=== PATIENT | female | born 1965 | race African-American/Black ===

== ENCOUNTER 2016-07-27 18:42 | Emergency (ER) | payer BC ==
[2016-07-27 20:18] LABS: ALBUMIN 3.8 g/dL (3.4-5.0); ALKALINE PHOSPHATASE 157 U/L (46-116); ALT (SGPT) 41 U/L (10-68); CALC OSMOLALITY 282 mosm/kg (275-300); CALCIUM 9.4 mg/dL (8.5-10.1); CARBON DIOXIDE 30.3 mmol/L (21.0-32.0); CHLORIDE - SERUM 103 mmol/L (98-107); CREATININE - SERUM 0.8 mg/dL (0.6-1.3); GLUCOSE 113 mg/dL (74-106); POTASSIUM - SERUM 3.1 mmol/L (3.5-5.1); PROTEIN - SERUM 8.1 g/dL (6.4-8.2); SODIUM 142 mmol/L (136-145); UREA NITROGEN 9 mg/dL (7-18); eGFR NON AFRICAN AMERICAN 81 mL/min (90-120)
[2016-07-27 20:19] LABS: BASOPHILS 0.3 % (0.0-2.0); EOSINOPHILS 2.1 % (0-7); HEMATOCRIT 37.9 % (36.0-48.0); HEMOGLOBIN 12.7 g/dL (12-16); IMMATURE GRANULOCYTES 0.2 % (0-5); LYMPHOCYTES 33.7 % (15-50); MCHC 33.5 g/dL (31.0-37.0); MCV 83.7 fL (80.0-100.0); MEAN PLATELET VOLUME 10.4 fL (7.4-10.4); MONOCYTES 5.5 % (2-11); NEUTROPHILS 58.2 % (40-80); PLATELET COUNT 240 10x3/uL (130-400); RBC 4.53 10x6/uL (4.00-5.40); RDW 14.4 % (11.5-14.5); WBC 6.2 10x3/uL (4.8-10.8)
[2016-07-27 20:31] LABS: CKMB 1.4 U/L (0.0-3.6); CREATINE KINASE 312 UL (21-215)
[2016-07-27 20:32] LABS: TROPONIN-I < 0.017 ng/mL (0.000-0.060)
== END 2016-07-27 22:25 | disposition home or self-care (01) ==
LOC: D.ER 18:42
PROVIDERS: Emergency Medicine
DX: I10 Essential (primary) hypertension (principal)

== ENCOUNTER 2017-03-06 | Emergency (ER) | payer BC | END 2017-03-06 01:50 | disposition home or self-care (01) | LOC: D.ER | DX: J01.90 Acute sinusitis, unspecified (principal); I10 Essential (primary) hypertension ==

== ENCOUNTER 2017-03-06 20:32 | Emergency (ER) | payer BC | END 2017-03-06 22:44 | disposition home or self-care (01) | LOC: D.ER 20:32 | DX: I10 Essential (primary) hypertension (principal); F41.9 Anxiety disorder, unspecified ==

== ENCOUNTER → 2017-04-12 16:10 | Outpatient (CLI) | payer BC | END | disposition home or self-care (01) | LOC: D.CT 04-11 15:30 | DX: I88.9 Nonspecific lymphadenitis, unspecified (principal) ==

== ENCOUNTER → 2017-10-02 17:33 | Outpatient (CLI) | payer BC ==
[~2017-10-02 17:33] MED LIST: FUROSEMIDE40 MG PO; LEVOXYL25 MCG PO; MATZIM LA240 MG PO
[2017-10-02 20:42] LABS: CHOL - HDL RATIO 2.8 ratio (2.3-4.1); LDL-HDL RATIO 1.6 ratio (1.5-3.5); T4 THYROXINE 13.6 ug/dL (4.7-13.3); THYROID STIMULATING HORMONE 4.04 uIU/mL (0.36-3.74)
[2017-10-06 07:33] VITALS: BMI 42.2
== END | disposition home or self-care (01) ==
LOC: D.LABREF 17:33
PROVIDERS: Internal Medicine Cardiovascular Disease
DX: R07.9 Chest pain, unspecified (principal); R00.2 Palpitations; I10 Essential (primary) hypertension

== ENCOUNTER → 2017-10-04 09:55 | Outpatient (CLI) | payer BC ==
--- NOTE | ~2017-10-04 | EC ---
PATIENT:RUBEN LA DATE OF SERVICE: 10/04/17 SEX: F MEDICAL RECORD: [id number] DATE OF : 67 LOCATION:D[facility] AGE OF PATIENT: 51 ADMISSION DATE: 10/04/17 REFERRING PHYSICIAN: INTERPRETING PHYSICIAN: CECI BARROW MD ECHOCARDIOGRAM REPORT ECHO CHARGES 4 ECHO COMPLETE Date: 10/04 CLINICAL DIAGNOSIS: PALPITATIONS/CP/HTN ECHOCARDIOGRAPHIC MEASUREMENTS (adult normal given) AC root (d.<3.7cm) 2.6 cm LV Septum d (<1.2 cm> 1.5 cm Valve Excursion 1.8 cm LV Septum (systole) 1.8 cm Left Atria (s.<4.0cm> 3.6 cm LVPW d(<1.2cm) 1.3 cm RV (d.<2.3cm) 1.8 cm LVPW (sytole) 2.0 cm LV diastole(<5.6CM) 4.1 cm MV E-F(>70mm/sec) cm LV systole 2.2 cm LVOT Diameter 1.8 cm MV exc.(>10mm) cm Est.ejection fraction (50-75%) % DOPPLER: LVIT cm/sec A 110 cm/sec E 97.0 cm/sec LA cm/sec RVSP 31.0 mmHg LVOT 95.0 cm/sec AOP1/2T m/s Asc. Ao 134 cm/sec RVOT 75.0 cm/sec RA cm/sec PA 96.0 cm/sec AV Gradient Peak 7.1 mmHg AV Mean 3.9 mmHg AV Area 1.8 cm MV Gradient Peak 7.5 mmHg MV Mean 2.7 mmHg MV Area cm COMMENTS: Director Mortgage: Biju SANDSOE Veneer Joiner: 4 Dr. Barrow TAPE# PACS Pericardial Effusion N DATE OF SERVICE: PROCEDURE: Transthoracic echocardiogram. FINDINGS: 1. Left ventricle shows moderate concentric left ventricular hypertrophy. Inflow characteristics consistent with diastolic dysfunction, ejection fraction of 60%. No regional wall motion abnormalities. 2. The left atrium is normal size, normal shape and normal function. 3. Tricuspid valve is normal structurally and functionally with trace mitral ECHOCARDIOGRAM REPORT [id number] RUBEN LA regurgitation. 4. Tricuspid valve shows normal structure. RVSP is normal. 5. The pericardium is normal. 6. The right ventricle is normal. 7. The right atrium is normal. CONCLUSION: The patient has evidence of mild hypertensive heart disease, but otherwise normal echocardiogram. TRANSINT:[id number] Voice Confirmation ID: [id number] DOCUMENT ID: [id number] CECI BARROW MD at 1426 CC: [id number] DICTATION DATE: 10/05/17 1018 CARBURIZER: 10/05/17 1103 DEP CLI 10/04/[address] [address]
[2017-10-06 07:33] VITALS: BMI 42.2
== END | disposition home or self-care (01) ==
LOC: D.ECHO 09:55
DX: R00.2 Palpitations (principal); R07.9 Chest pain, unspecified; I10 Essential (primary) hypertension

== ENCOUNTER → 2017-10-06 07:04 | Outpatient (CLI) | payer BC ==
[~2017-10-06] VITALS: Ht 160 cm; Wt 108.2 kg
--- NOTE | ~2017-10-06 | HEMODYNAMI ---
PATIENT:RUBEN LA MEDICAL RECORD: [id number] : 67 LOCATION:DB ADMISSION DATE: 10/06/17 Generatedon:10/06/20179:37 Patient name: RUBEN LA Patient #: [id number] SSN: DO B: 1965 Date of study: 10/06/2017 Page: Of Hemodynamic Procedure Report Patient Data Patient Demographics Procedure consent was obtained First Name: RUBEN Gender: Female Last Name: ABHINAV : 1965 Patient #: [id number] Age: 51 year(s) Race: Black Additional ID: [id number] Contact details [address]: [address] [place] [address] State: [place] City: [place] Zip code: [address] Past Medical History Allergies Allergen Reaction Date Comments Reported Iodine 10/06/2017 Patient premedicated Admission Admission Data Admission Date: 10/06/2017 Admission Time: 7:04 Procedure Procedure Types Cath Procedure Diagnostic Procedure LHC LHC w/Coronaries Sedation Charges Moderate Sedation up to 15 minutes Procedure Description Procedure Date Procedure Date: 10/06/2017 Procedure Start Time: 9:23 Procedure End Time: 9:36 Procedure Staff Name Function Noé Chakraborty MD Performing Physician Addie George RT Monitor Karthik Vaz RN Nurse Kike Lamas RT Scrub Procedure Data Cath Procedure Fluoroscopy Diagnostic fluoroscopy Total fluoroscopy Time: 0.9 time: 0.9 min min Diagnostic fluoroscopy Total fluoroscopy dose: 275 dose: 275 mGy mGy Contrast Material Contrast Material Type Amount (ml) Isovue 300 36 Entry Location Entry Primary Successful Side Size Upsize Upsize Entry Closure Succes sful Closure Location (Fr) 1 (Fr) 2 (Fr) Remarks Device Remarks Femoral Right 5 Fr Exoseal artery Estimated blood loss: 5 ml Diagnostic catheters Device Type Used For End Catheter Placement MULTIPACK JL 4.0 5Fr Left Coronary catheter Angiography MULTIPACK 3DRC 5Fr Right Coronary catheter Angiography MULTIPACK Pigtail 5 Fr LV Angiography catheter Procedure Complications No complications Procedure Medications Medication Administration Route Dosage 0.9% NaCl I.V. 100 ml/hr Oxygen NC 2 l/min Heparin Flush Bag added to field 2 bags (1000units/500ml NS) Lidocaine 2% added to field 20 Versed I.V. 0.5 mg Fentanyl I.V. 25 mcg Versed I.V. 0.5 mg Hemodynamics Rest Heart Rate: 91 (bpm) Pressure Samples Time Site Value (mmHg) Purpose Heart Use Rate(bpm) 9:30 LV 156/-11,17 EDP 87 9:31 AO 146/77(113) Pullback 85 9:31 LV 126/11,13 Pullback 85 Gradients Valve Time Site 1 Site 2 Mean SEP/DFP Peak To Heart Use (mmHg) (sec/min) Peak Rate (mmHg) (bpm) Aortic 9:31 LV AO 0 3 0 85 126/11,13 146/77(113) Calculations Valve P-P Mean Valve Index Valve Source Name Gradient Area Flow (cm2) Aortic 0 0 0 0 Snapshots Pre Cath Intra NCS Post Cath Vital Signs Time Heart Resp SPO2 etCO2 NIBP (mmHg) Rhythm Pain Sedation Rate (ipm) (%) (mmHg) Status Level (bpm) 9:00:51 89 16 100 29.9 183/99(140) NSR 0 (11) 10(A) , No pain 9:06:00 90 22 99 21.6 171/102(139) NSR 0 (11) 10(A) , No pain 9:11:07 90 20 99 31.4 162/96(119) NSR 0 (11) 10(A) , No pain 9:16:12 86 19 100 37.4 166/91(127) NSR 0 (11) 10(A) , No pain 9:21:17 89 21 99 36.6 160/96(128) NSR 0 (11) 10(A) , No pain 9:26:20 85 18 100 36.6 161/96(121) NSR 0 (11) 10(A) , No pain 9:31:24 87 23 100 38.1 149/95(132) NSR 0 (11) 10(A) , No pain 9:36:23 86 19 99 38.9 159/91(126) NSR 0 (11) 10(A) , No pain Medications Time Medication Route Dose Verified Delivered Reason Notes Effec tiveness by by 9:00:09 0.9% NaCl I.V. 100 Karthik Karthik Per ml/hr Татьяна Vaz physician RN RN 9:00:20 Oxygen NC 2 Karthik Karthik Per l/min Татьяна Vaz physician RN RN 9:00:33 Heparin Flush added 2 Karthik Karthik used for Bag to bags Lorjeimy Vaz procedure (1000units/500ml field RN RN NS) 9:00:55 Lidocaine 2% added 20ml Karthik Karthik for local to vial Lorigan Lorigan anesthetic field RN RN 9:06:00 Versed I.V. 0.5 Karthik Karthik for mg Lorigan Lorigan sedation RN RN 9:06:08 Fentanyl I.V. 25 Karthik Karthik for mcg Lorigan Lorigan sedation RN RN 9:09:00 Versed I.V. 0.5 Karthik Karthik for mg Lorigan Lorigan sedation RN bridge ironworker helper Log Time Note 8:44:04 Addie Counts RT(R) sent for patient. Start room use. 8:44:05 Time tracking: Regular hours 8:44:08 Plan of Care:Hemodynamics will remain stable., Cardiac rhythm will remain stable., Comfort level will be maintained., Respiratory function will remain adequate., Patient/ family verbilizes understanding of procedure., Procedure tolerated without complication., Recovers from procedure without complications.. 8:53:04 Patient received from Pre/Post Procedure Room to CCL 1 Alert and oriented. Tansferred to table in Supine position. 8:53:05 Warm blankets applied, and mariano hugger turned on for patient comfort. 8:53:06 Correct patient and procedure confirmed by team. 8:53:07 Signed procedure consent form obtained from patient. 8:53:08 ECG and BP/O2 sat monitors applied to patient. 8:59:32 Vital chart was started 8:59:36 Rhythm: sinus rhythm 8:59:37 Full Disclosure recording started 9:00:09 0.9% NaCl 100 ml/hr I.V. was administered by Karthik Vaz RN; Per physician; 9:00:20 Oxygen 2 l/min NC was administered by Karthik Vaz RN; Per physician; 9:00:33 Heparin Flush Bag (1000units/500ml NS) 2 bags added to field was administered by Karthik Vaz RN; used for procedure; 9:00:42 H&P Date Dictated: 10/05/2017 Within 30 days and on chart., H&P Addendum completed by physician on day of procedure. (MUST COMPLETE FOR ALL OUTPATIENTS). 9:00:44 Pre-procedure instructions explained to patient. 9:00:44 Pre-op teaching completed and patient verbalized understanding. 9:00:46 Family in waiting room. 9:00:48 Patient NPO since Midnight. 9:00:55 Lidocaine 2% 20ml vial added to field was administered by Karthik Vaz RN; for local anesthetic; 9:00:57 Patient allergic to IodinePatient premedicated 9:01:12 Is the patient allergic to Iodine/contrast media? Yes. 9:01:12 Was the patient premedicated? Yes 9:01:14 Is patient on blood thinner?Yes 9:01:17 ACC The patient was administered the following blood thiners within the last 24 hours: ACCPlavix 9:01:18 Patient diabetic? No. 9:01:22 Previous problem with sedation/anesthesia? No ? 9:01:23 Snore? No 9:01:24 Sleep apnea? No 9:01:25 Deviated septum? No 9:01:26 Opens mouth fully? Yes 9:01:27 Sticks out tongue? Yes 9:01:30 Dentures? No ? 9:01:32 Pre procedure: right dorsailis pedis pulse 2+ Normal; easily identifiable; not easily obliterated 9:01:38 Pre procedure: right radial pulse 0-Absent 9:01:45 Patient pain scale 0/10 ?. 9:01:49 IV patent on arrival in left hand with 0.9% NaCl at KVO. 9:01:51 Lab results completed and on chart. 9:01:56 Right groin area was prepped with chlora-prep and draped in sterile fashion 9:01:57 Alarms reviewed by R. N. 9:01:57 Sharps counted by scrub and verified by R.N. 9:02:01 Use device set Femoral Dx 9:02:03 ACIST Syringe (59078) opened to sterile field. 9:02:03 Bag Decanter (2002S) opened to sterile field. 9:02:04 Medline Cath Pack ([id number]) opened to sterile field. 9:02:05 DIAGNOSTIC WIRE .035 260cm J wire (191374) opened to sterile field. 9:02:06 ACIST Hand Control (58013) opened to sterile field. 9:02:07 ACIST Manifold (19698) opened to sterile field. 9:02:08 DIAGNOSTIC Multipack 5Fr catheter set ([id number]) opened to sterile field. 9:02:08 Tegaderm 4 x 4 (1626W) opened to sterile field. 9:02:10 MICROPUNCTURE 4FR Cook ([id number]) opened to sterile field. 9:03:11 Baseline sample Acquired. 9:05:05 Final Timeout: patient, procedure, and site verified with staff and physician. All members of the team are in agreement. 9:05:08 Right groin site verified by team. 9:05:10 Physical assessment completed. ASA score P 2 - A patient with mild systemic disease as per Noé Chakraborty MD. 9:05:14 Sedation plan: IV Moderate Sedation Medication:Versed, Fentanyl 9:06:00 Versed 0.5 mg I.V. was administered by Karthik Vaz RN; for sedation; 9:06:08 Fentanyl 25 mcg I.V. was administered by Karthik Vaz RN; for sedation; 9:09:00 Versed 0.5 mg I.V. was administered by Karthik Vaz RN; for sedation; 9:14:35 Zero performed for pressure channel P1 9:22:30 Procedure started. 9:23:09 Local anesthetic to right femoral artery with Lidocaine 2% by Noé Chakraborty MD.INITIAL ACCESS ONLY 9:24:13 Access obtained with 4Fr micropunture. 9:25:09 A 5 Fr sheath was inserted into the Right Femoral artery 9:25:47 A MULTIPACK JL 4.0 5Fr catheter was advanced over the wire and used for Left Coronary Angiography. 9:27:26 Catheter removed. 9:28:08 A MULTIPACK 3DRC 5Fr catheter was advanced over the wire and used for Right Coronary Angiography. 9:29:21 Catheter removed. 9:29:30 A MULTIPACK Pigtail 5 Fr catheter was advanced over the wire and used for LV Angiography. 9:30:58 LV gram done using WONG 9:31:02 Injector settings: Ml/sec: 12, Volume: 8, 9:31:04 LV hemodynamics recorded. 9:31:11 Catheter removed. 9:31:25 EXOSEAL 5Fr (EX500) opened to sterile field. 9:31:39 Sheath removed intact; hemostasis achieved with Exoseal to the Right Femoral artery. 9:31:41 Procedure ended.(Physican Out) 9:31:56 Fluoroscopy time 00.90 minutes. 9:31:59 Fluoroscopy dose: 275 mGy 9:31:59 Flurop Dose total: 275 9:32:47 Contrast amount:Isovue 300 36ml. 9:32:49 Sharps counted by scrub and verified by R.N. 9:32:54 Post-op/insertion site Right Femoral artery dressed using a 4 x 4 and Tegaderm. 9:33:06 Post right femoral artery:stable, clean and dry 9:33:11 Post Procedure Pulses reassessed and unchanged 9:33:13 Post-procedure physical assessment completed. ASA score P 2 - A patient with mild systemic disease as per Noé Chakraborty MD. 9:33:15 Post procedure rhythm: unchanged. 9:33:17 Estimated blood loss: 5 ml 9:33:19 Post procedure instruction explained to patient.Patient verbalizes understanding. 9:33:19 Patient needs reinforcement of post procedure teaching. 9:34:03 Procedure type changed to Cath procedure, Diagnostic procedure, LHC, LHC w/Coronaries, Sedation Charges, Moderate Sedation up to 15 minutes 9:34:08 Procedure Complication : No complications 9:34:10 Procedure and supply charges have been captured, reviewed, submitted and are correct. 9:34:17 See physician's report for complete and final results. 9:34:47 SHEATH 5Fr Prelude ([id number]) opened to sterile field. 9:35:40 Report given to Pre/Post Procedure Room. 9:36:41 Patient transfered to Pre/Post Procedure Room with Stretcher. 9:36:43 Vital chart was stopped 9:36:45 Procedure ended. 9:36:45 Full Disclosure recording stopped 9:36:52 End room use (Document Last) Device Usage Item Name Manufacture Quantity Catalog Hospital Part Current Minima l Lot# / Number Charge Number Stock Stock Serial# Code ACIST Syringe Acist 1 42904 479138 910378 134786 20 (31824) Synack Bag Decanter Microtek 1 552710 90700 259888 5 (2002S) Medical Inc. Medline Cath Cardinal 1 [id number] 674685 25735 404213 5 Pack Health ([id number]) DIAGNOSTIC St Jone 1 013933 079052 022883 362527 30 WIRE .035 260cm J wire (531221) ACIST Hand Acist 1 48306 652450 672990 543666 5 Control Medical (63260) Systems Inc ACIST Acist 1 41834 582780 496549 365316 5 Manifold Medical (62428) Systems Inc DIAGNOSTIC Cardinal 1 SF3685 341288 78634 514296 30 Multipack 5Fr Health catheter set (HC4945) Tegaderm 4 x 3M 1 1626W 241921 286002 288878 5 4 (1626W) MICROPUNCTURE Cook Medical 1 Z04871 425775 141643 840942 5 4FR Cook (Y29378) MULTIPACK JL Cardinal 1 982027 5 4.0 5Fr Health catheter MULTIPACK Cardinal 1 970527 5 3DRC 5Fr Health catheter MULTIPACK Cardinal 1 826221 5 Pigtail 5 Fr Health catheter EXOSEAL 5Fr Cardinal 1 EX500 174341 476299 555635 10 (EX500) Health SHEATH 5Fr Merit 1 [id number] 467672 502991 433592 5 Prelude Medical ([id number]) Signature Audit [place] Stage Time Signature Unsigned Intra-Procedure 10/06/2017 Addie 9:37:07 AM Counts RT(R) Signatures Monitor : Addie Signature : Counts RT Date : Time : [address] [place] [address]
[2017-10-06 07:31] LABS: BASOPHILS 0.2 % (0-2); EOSINOPHILS 1.4 % (0-7); HEMATOCRIT 36.9 % (36.0-48.0); HEMOGLOBIN 12.5 g/dL (12-16); IMMATURE GRANULOCYTES 0.2 % (0-5); LYMPHOCYTES 30.8 % (15-50); MCH 28.3 pg (26.0-34.0); MCHC 33.9 g/dL (31.0-37.0); MCV 83.5 fL (80.0-100.0); MEAN PLATELET VOLUME 10.5 fL (7.4-10.4); MONOCYTES 5.5 % (2-11); NEUTROPHILS 61.9 % (40-80); PLATELET COUNT 241 10x3/uL (130-400); RBC 4.42 10x6/uL (4.00-5.40); RDW 14.1 % (11.5-14.5)
[2017-10-06 07:33] VITALS: BP 172/89; Ht 160 cm; Wt 108.2 kg
[2017-10-06 07:44] LABS: CALC OSMOLALITY 279 mosm/kg (275-300); CALCIUM 8.8 mg/dL (8.5-10.1); CARBON DIOXIDE 27.7 mmol/L (21.0-32.0); CHLORIDE - SERUM 103 mmol/L (98-107); CREATININE - SERUM 0.8 mg/dL (0.6-1.3); GLUCOSE 101 mg/dL (74-106); SODIUM 141 mmol/L (136-145); UREA NITROGEN 10 mg/dL (7-18); eGFR NON AFRICAN AMERICAN 80 mL/min (90-120)
== END | disposition home or self-care (01) ==
LOC: D.CATH 07:04
PROVIDERS: Internal Medicine Cardiovascular Disease
DX: R07.89 Other chest pain (principal); I25.10 Atherosclerotic heart disease of native coronary artery without angina pectoris; R94.39 Abnormal result of other cardiovascular function study; Z01.812 Encounter for preprocedural laboratory examination

== ENCOUNTER 2020-02-02 11:24 | Inpatient (IN) | payer SELFPAY ==
[2020-02-02] VITALS (38 sets, daily range): BP systolic 116–212; BP diastolic 52–101; Ht 162.6 cm; Wt 104.5 kg
[~2020-02-02] VITALS: Ht 162.6 cm; Wt 104.5 kg
--- NOTE | ~2020-02-02 | EC ---
PATIENT:RUBEN LA DATE OF SERVICE: 02/02/20 SEX: F MEDICAL RECORD: [id number] DATE OF : 67 LOCATION:[place] [address] AGE OF PATIENT: 54 ADMISSION DATE: 02/02/20 REFERRING PHYSICIAN: INTERPRETING PHYSICIAN: NOÉ ARZATE MD ECHOCARDIOGRAM REPORT ECHO CHARGES 4 ECHO COMPLETE Date: 02/03/20 CLINICAL DIAGNOSIS: HTN ECHOCARDIOGRAPHIC MEASUREMENTS (adult normal given) AC root (d.<3.7cm) 2.6 cm LV Septum d (<1.2 cm> 1.2 cm Valve Excursion 1.7 cm LV Septum (systole) 1.8 cm Left Atria (s.<4.0cm> 4.0 cm LVPW d(<1.2cm) 0.9 cm RV (d.<2.3cm) 2.3 cm LVPW (sytole) 1.0 cm LV diastole(<5.6CM) 5.1 cm MV E-F(>70mm/sec) cm LV systole 3.9 cm LVOT Diameter 1.8 cm MV exc.(>10mm) cm Est.ejection fraction (50-75%) % DOPPLER: LVIT cm/sec A 121 cm/sec E 86 cm/sec LA cm/sec RVSP 19.6 mmHg LVOT 116 cm/sec AOP1/2T m/s Asc. Ao 134 cm/sec RVOT 109 cm/sec RA cm/sec PA 112 cm/sec AV Gradient Peak 7.1 mmHg AV Mean 4.4 mmHg AV Area 2.4 cm MV Gradient Peak 7.6 mmHg MV Mean 3.6 mmHg MV Area cm COMMENTS: Film Numberer: Jessica ROMERO Ui Developer: 3 Dr. Murillo TAPE# PACS Pericardial Effusion N DATE OF SERVICE: Adequate 2D, color flow imaging, spectral Doppler, and M-Mode. No LVH. LV internal dimension is normal. Wall motion is normal. EF is greater than or equal to 55%. Aortic valve is tricuspid. No evidence of stenosis by Doppler interrogation. Left atrium is normal at 4.0 cm. Mitral valve shows no prolapse. Trace MR. Right-sided chambers are grossly normal. Trace TR. TRANSINT:[id number] Voice Confirmation ID: [id number] DOCUMENT ID: [id number] ECHOCARDIOGRAM REPORT [id number] LARUBEN BERMUDEZ GREGORY A MD CC: [id number] DICTATION DATE: 02/03/20 1255 DOPE WORKER: 02/03/20 1556 ADM IN [facility] [address] [id number]
[~2020-02-02 11:24] MED LIST changes: +AMOXICILLIN500 M1 PO
[2020-02-02 12:09] LABS: BASOPHILS 0.2 % (0-2); EOSINOPHILS 1.9 % (0-7); HEMATOCRIT 40.8 % (36.0-48.0); HEMOGLOBIN 13.4 g/dL (12-16); IMMATURE GRANULOCYTES 0.3 % (0-5); MCH 27.6 pg (26.0-34.0); MCHC 32.8 g/dL (31.0-37.0); MCV 84.1 fL (80.0-100.0); MEAN PLATELET VOLUME 10.3 fL (7.4-10.4); MONOCYTES 6.4 % (2-11); NEUTROPHILS 62.2 % (40-80); PLATELET COUNT 241 10x3/uL (130-400); RBC 4.85 10x6/uL (4.00-5.40); RDW 14.1 % (11.5-14.5); WBC 5.9 10x3/uL (4.8-10.8)
[2020-02-02 12:20] LABS: CALC OSMOLALITY 282 mosm/kg (275-300); CARBON DIOXIDE 29.6 mmol/L (21.0-32.0); CHLORIDE - SERUM 107 mmol/L (98-107); CREATININE - SERUM 0.9 mg/dL (0.6-1.3); GLUCOSE 101 mg/dL (74-106); POTASSIUM - SERUM 3.7 mmol/L (3.5-5.1); SODIUM 143 mmol/L (136-145); UREA NITROGEN 8 mg/dL (7-18); eGFR NON AFRICAN AMERICAN 69 mL/min (90-120)
[2020-02-02 12:35] LABS: ALKALINE PHOSPHATASE 149 U/L (30-120); ALT (SGPT) 37 U/L (10-68); BILIRUBIN - TOTAL 0.53 mg/dL (0.2-1.3); CKMB 2.1 U/L (0.0-3.6); CREATINE KINASE 177 UL (21-215); MAGNESIUM - SERUM 1.9 mg/dL (1.8-2.4); PRO BNP 292 pg/mL (0-125)
[2020-02-02 12:36] LABS: TROPONIN-I 0.016 ng/mL (0.000-0.060)
[2020-02-02 18:22] LABS: CKMB 1.5 U/L (0.0-3.6); CREATINE KINASE 144 UL (21-215)
[2020-02-02 18:23] LABS: TROPONIN-I < 0.017 ng/mL (0.000-0.060)
[2020-02-02] MEDS ORDERED: ADVIL200 MG PO (19:43)
[2020-02-02] MEDS ORDERED: BENADRYL25 MG PO (19:44)
--- NOTE | 2020-02-02 20:15 | NUR ---
REC'D FROM ER WITH DX OF HTN EMERGENCY. IV INFUSION OF CARDENE INFUSING AT 3 MG/HR (15 ML/HR) TO L FOREARM, SITE CLEAR OF REDNESS OR EDEMA. INITIAL ADMISSION ASSESSMENT AND HISTORY COMPLETED AND RECORDED PER FLOW SHEET. BP CURRENTLY 153/73, WILL MONITOR AND TITRATE CARDENE ACCORDINGLY. ORIENTED TO ROOM, USE OF CALL LIGHT, ETC. GIVEN SANDWICH TRAY AND WATER. WILL INITIATE PLAN OF CARE AND MONITOR.
--- NOTE | 2020-02-02 22:45 | NUR ---
SBP HAS BEEN IN THE 120S FOR PAST 3 TIMES, CARDENE TURNED DOWN TO 2 MG/HR. LYING QUIETLY WITH EYES CLOSED, RESP EVEN AND UNLABORED.
[2020-02-03] VITALS (63 sets, daily range): BP systolic 114–172; BP diastolic 53–92
--- NOTE | 2020-02-03 01:15 | NUR ---
BP NOW AT 118/53, CARDENE AT 1 MG/MIN (10 ML/HR). HAS BEEN RESTING QUIETLY W/O COMPLAINT. TURNS SELF IN BED. WILL CONT TO MONITOR BP.
[2020-02-03 03:08] LABS: BASOPHILS 0.1 % (0-2); EOSINOPHILS 0 % (0-7); HEMATOCRIT 37.4 % (36.0-48.0); HEMOGLOBIN 12.3 g/dL (12-16); IMMATURE GRANULOCYTES 0.1 % (0-5); LYMPHOCYTES 9.4 % (15-50); MCH 27.8 pg (26.0-34.0); MCHC 32.9 g/dL (31.0-37.0); MCV 84.4 fL (80.0-100.0); MEAN PLATELET VOLUME 10.1 fL (7.4-10.4); MONOCYTES 2.3 % (2-11); NEUTROPHILS 88.1 % (40-80); PLATELET COUNT 247 10x3/uL (130-400); RBC 4.43 10x6/uL (4.00-5.40); RDW 14.3 % (11.5-14.5)
[2020-02-03 03:12] LABS: WBC 9.6 10x3/uL (4.8-10.8)
[2020-02-03 03:31] LABS: CALCIUM 8.7 mg/dL (8.5-10.1); CARBON DIOXIDE 28.9 mmol/L (21.0-32.0); CHLORIDE - SERUM 108 mmol/L (98-107); CKMB 1.2 U/L (0.0-3.6); CREATINE KINASE 121 UL (21-215); CREATININE - SERUM 1.1 mg/dL (0.6-1.3); POTASSIUM - SERUM 4.2 mmol/L (3.5-5.1); SODIUM 142 mmol/L (136-145); eGFR NON AFRICAN AMERICAN 55 mL/min (90-120)
[2020-02-03 03:40] LABS: CALC OSMOLALITY 286 mosm/kg (275-300); GLUCOSE 168 mg/dL (74-106); TROPONIN-I < 0.017 ng/mL (0.000-0.060); UREA NITROGEN 13 mg/dL (7-18)
--- NOTE | 2020-02-03 08:39 | NUR ---
SPOKE WITH ZULLY JOHANSEN. ORDERED TO INCREASE CARDENE DRIP TO 2MG/HR.
--- NOTE | 2020-02-03 09:38 | NUR ---
0700 PT RECIEVED ALERT AND ORIENTED VSS NO SIGNS OF ANGIOEDEMA, L WRIST PIV WITH CARDENE INFUSING, DENIES ALL NEEDS, SEE SHIFT ASSESSMENT FOR DETAILS 0800 ATE 75% BREAKFAST 0930 SPOKE WITH ZULLY LYONS, WILL WEAN CARDENE ABLE
--- NOTE | 2020-02-03 12:07 | NUR ---
PAGED CARDIOLOGY FOR CONTINUED HTN, DR SAUER RETURNED PAGE, ORDERS FOR VASOTEC IV
--- NOTE | 2020-02-03 16:58 | NUR ---
1400 CARDENE WEANED OFF 1650 DINNER TRAY SERVED PT STATED THAT SHE WANTS TO LEAVE HOSPITAL AND THAT SHE WAS TOLD SHE COULD DC TONIGHT, CALLED DR SAUER WHO STATED HE WANTED TO KEEP PT IN UNIT TO MONITOR BP TONIGHT, SPOKE WITH DR CHEN WHO IS IN AGREEMENT, PT STATED DR CHEN TOLD HER SHE MAY DC TONIGHT, DR CHEN STATED THAT PT HAD ASKED ABOUT LEAVING AMA AND HE TOLD HER THAT SHE COULD LEAVE AMA BUT THAT HE WAS STRONGLY AGAINST IT, WHEN DINNER TRAY SERVED REITERATED TO PT THAT MDS ON HER CASE WANTED HER TO STAY THROUGH THE NIGHT, PT STATED SHE WOULD NOT WANT CARDENE GTT RESTARTED WHILE SHE STAYED BECAUSE SHE CANNOT AFFORD TO BE IN THE HOSPITAL, CASE MANAGEMENT ALSO NOTIIFED OF PTS FINANCIAL CONCERNS
--- NOTE | 2020-02-03 19:00 | NUR ---
SHIFT ASSESSMENT COMPLETED. PT CARE ASSUMED. MONITORS ON AND WORKING. VSS. CALL LIGHT WITHIN REACH. PT AWAKE AND ALERT, NO PAIN OR DISCOMFORT NOTED. WILL CONTINUE TO OBSERVE.
--- NOTE | 2020-02-03 21:00 | NUR ---
NO CHANGES, MONITORS ON AND WORKNG, VSS, PT AWAKE AND ALERT, NO SIGNS/SYMPTOMS OF PAIN OR DISCOMFORT NOTED.
--- NOTE | 2020-02-03 23:00 | NUR ---
PT LYING IN BED RESTING, MONITORS ON AND WORKING, VSS. CALL LIGHT WITHIN REACH, NO CHANGES, SEE FLOW SHEET FOR FURTHER DETIALS. WILL CONTINUE TO OBSERVE.
[2020-02-04] VITALS (10 sets, daily range): BP systolic 133–174; BP diastolic 71–88
--- NOTE | 2020-02-04 01:00 | NUR ---
NO CHNAGES MONITORS ON AND WORKING, VSS. WILL CONTINUE TO OBSERVE.
--- NOTE | 2020-02-04 03:00 | NUR ---
PT RESTING, MONITORS ON AND WORKING, PT REFUSES CARDENE DRIP. PT AWAKE AND ALERT, NO SIGNS/SYMPTOMS OF PAIN OR DISCOMFORT. CALL LIGHT WITHIN REACH, SEE FLOW SHEET FOR FURTHER DETAILS. WILL CONTINUE TO OBSERVE.
--- NOTE | 2020-02-04 05:00 | NUR ---
NO CHANGES, MONITORS ON AND WORKING, VSS. CALL LLIGHT WITHIN REACH, WILL CONTINUE TO OBSERVE,
[2020-02-04 05:23] LABS: BASOPHILS 0 % (0-2); EOSINOPHILS 0 % (0-7); HEMATOCRIT 38.5 % (36.0-48.0); HEMOGLOBIN 12.7 g/dL (12-16); IMMATURE GRANULOCYTES 0.3 % (0-5); LYMPHOCYTES 7.4 % (15-50); MCH 27.8 pg (26.0-34.0); MCV 84.2 fL (80.0-100.0); MEAN PLATELET VOLUME 10.6 fL (7.4-10.4); MONOCYTES 4.2 % (2-11); NEUTROPHILS 88.1 % (40-80); PLATELET COUNT 265 10x3/uL (130-400); RBC 4.57 10x6/uL (4.00-5.40); RDW 14.4 % (11.5-14.5)
[2020-02-04 05:32] LABS: WBC 16.1 10x3/uL (4.8-10.8)
[2020-02-04 05:40] LABS: ANION GAP 11.6 mmol/L (8-16); CALCIUM 8.9 mg/dL (8.5-10.1); CARBON DIOXIDE 27.1 mmol/L (21.0-32.0); CREATININE - SERUM 0.9 mg/dL (0.6-1.3); POTASSIUM - SERUM 3.7 mmol/L (3.5-5.1)
--- NOTE | 2020-02-04 10:43 | NUR ---
CARDIOLOGY HAS ROUNDED AND DR URRUTIA HAS BEEN REPORTED TO RE: ECHO. AWAITING ESCRIPT TO DC.
[2020-02-04] MEDS ORDERED: CLINDAMYCIN HC300 MG PO (11:19)
[2020-02-04] MEDS ORDERED: LEVAQUIN750 MG PO (11:19)
[2020-02-04] MEDS ORDERED: NORVASC5 MG PO (11:24)
[2020-02-04] MEDS ORDERED: HCTZ25 MG PO (11:24)
--- NOTE | 2020-02-04 12:38 | NUR ---
DC MEDS ESCRIPTED TO [facility]. MEDS REVIEWED AND CM GAVE COUPONS FOR RX AND DISCOUNT CARD. PT DC HOME.
--- NOTE | 2020-02-04 22:17 | MORECARE ---
CASE MANAGEMENT DISCHARGE SUMMARY PATIENT: RUBEN LA UNIT: [id number] ADM DATE: 02/02/20 AGE: 54 : 67 SEX: F ROOM/BED: [facility] AUTHOR: GLORIA RIVAS PHYSICIAN: REFERRING PHYSICIAN: SANTOSH RAYGOZA MD DATE OF SERVICE: 02/04/20 Discharge Plan Patient Name: RUBEN LA Facility: [facility]:[place] : 1965 Planned Disposition: Anticipated Discharge Date: Discharge Date: 02/04/2020 Expected LOS: Initial Reviewer: [email or web address] Initial Review Date: 02/02/2020 Generated: 02/04/20 11:17 pm Patient Name: RUBEN LA Page [phone] at 1047 All edits/amendments must be made on the electronic document DICTATION DATE: 02/04/202216 PSYCHIATRIC TECHNICIAN ASSISTANT: MAKI 02/04/202216 RPT#: [id number] DC DATE:02/04/20 STATUS: DIS IN [facility] [address] [place] [id number] END OF REPORT
--- NOTE | 2020-02-04 22:24 | MORECARE ---
CASE MANAGEMENT DISCHARGE SUMMARY PATIENT: RUBEN LA UNIT: [id number] ADM DATE: 02/02/20 AGE: 54 : 67 SEX: F ROOM/BED: [facility] AUTHOR: GLORIA RIVAS PHYSICIAN: REFERRING PHYSICIAN: SANTOSH RAYGOZA MD DATE OF SERVICE: 02/04/20 Discharge Plan Patient Name: RUBEN LA [facility] [facility] 1965 Planned Disposition: Anticipated Discharge Date: Discharge Date: 02/04/2020 Expected LOS: Initial Reviewer: [email or web address] Initial Review Date: 02/02/2020 Generated: 02/04/20 11:24 pm Comments DCP- Discharge Planning Updated by [email or web address]: Laila Frey on 02/04/20 9:[address] CM assisted patient with medication coupons for discharge medications. CM also gave patient GOOD RX card to assist with medications. Last DP export: 02/04/20 9:17 pm Patient Name: RUBEN LA Page [phone] at 2224 All edits/amendments must be made on the electronic document DICTATION DATE: 02/04/202223 PROFESSIONAL PROGRAMMER ANALYST: MAKI 02/04/202223 RPT#: [id number] DC DATE:02/04/20 STATUS: DIS IN [facility] [address] [place] [address] END OF REPORT
== END 2020-02-04 14:00 | disposition home or self-care (01) | DRG 916 ==
LOC: D.ER 11:24 → D.ICU 14:05 → D.CVICU 18:47
PROVIDERS: Family Medicine; ADMIT Emergency Medicine; ATTEND Emergency Medicine
DX: T78.3XXA Angioneurotic edema, initial encounter (principal); I16.0 Hypertensive urgency; E66.9 Obesity, unspecified; Z82.49 Family history of ischemic heart disease and other diseases of the circulatory system; R68.84 Jaw pain; R63.4 Abnormal weight loss; M27.2 Inflammatory conditions of jaws